=== PATIENT | female | born 1985 | race Caucasian/White ===

== ENCOUNTER 2020-08-12 15:11 | Emergency (ER) | payer BC ==
[2020-08-12] MEDS ORDERED: cefTRIAXone 1 GM Vial IM ONE (15:35)
[2020-08-12] MEDS ORDERED: Lidocaine 1% PF 2 ML SDV INJECT ONE (15:35)
--- NOTE | 2020-08-12 15:41 | EDM.PDOC ---
ED HPI GENERAL MEDICAL PROBLEM - General Chief Complaint: Skin Complaint Stated Complaint: POSSIBLE FROSTBITE Time Seen by Provider: 08/12/20 15:30 Source of Information: Reports: Patient History Limitations: Reports: No Limitations - History of Present Illness INITIAL COMMENTS - FREE TEXT/NARRATIVE: 35-year-old female presents to the ED with a painful left buttock. Patient has been giving herself injections alternating each buttock cheek for the last several months to maintain current which is estimated to be about 8 weeks along. She achieved this through into in vitro fertilization. She is currently giving herself progesterone injections into the buttock on a daily basis and is wearing an estradiol patch. So far no problems with the of occurred. She does not feel sick in terms of fever chills nausea vomiting. She appreciates area becoming much more painful since the injection was given into the buttock this morning. She thought perhaps that the progesterone which is kept in the fridge was too cold and that she had suffered frostbite. However this would be highly unlikely. Onset: Today, Sudden Onset Date: 08/12/20 Onset Time: 09:00 Duration: Hour(s):, Getting Worse Location: Reports: Other (Left buttock) Quality: Reports: Ache, Burning Severity: Mild Improves with: Reports: Rest Worsens with: Reports: Other Context: Reports: Trauma (For the last several weeks.). Denies: Activity, Exercise (Worse with touching the area.), Lifting, Sick Contact, Other Associated Symptoms: Reports: Malaise. 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 (see below) - Related Data Allergies Allergy/AdvReac Type Severity Reaction Status Date / Time No Known Allergies Allergy Verified 08/12/20 15:27 Home Meds: Home Meds Cefdinir [Omnicef] 300 mg PO BID #16 cap 08/12/20 [Rx] Estradiol [Sil] 2 patch TD Q48H 08/12/20 [History] estradioL [Estradiol] 2 mg PO BID 08/12/20 [History] proGESTerone [Progesterone In Oil] 1 injection IM DAILY 08/12/20 [History] Past Medical History 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 Denies: Fever, Chills, Malaise, Decreased Appetite (I did a ), Weight Loss HEENT: Reports: No Symptoms Respiratory: Reports: No Symptoms Cardiovascular: Reports: No Symptoms Endocrine: Reports: No Symptoms GI/Abdominal: Reports: No Symptoms : Reports: No Symptoms Musculoskeletal: Reports: No Symptoms Skin: Reports: Erythema (Erythematous and tenderness ) Neurological: Reports: No Symptoms Psychiatric: Reports: No Symptoms Hematologic/Lymphatic: Reports: No Symptoms Immunologic: Reports: No Symptoms ED EXAM, SKIN/RASH Exam: See Below Exam Limited By: No Limitations General Appearance: Alert, WD/WN, No Apparent Distress, Other (Temperature is 36.9. Heart rate is 71 and sinus respiratory to 16 BP 134/65 with O2 sats of 99% room air.) Eye Exam: Bilateral Eye: Normal Inspection, PERRL Skin: Other (Patient has an area of developing cellulitis left upper outer buttock measuring approximately 12 cm x 14 cm. It is well-defined erythematous borders and is warm to palpation combined with a developing cellulitis. It is mildly tender to touch.) Location, Skin: Other (Left upper outer buttock.) Course - Vital Signs Last Recorded V/S: Last Vital Signs Temp 36.9 C 08/12/20 15:25 Pulse 71 08/12/20 15:25 Resp 16 08/12/20 15:25 BP 134/65 08/12/20 15:25 Pulse Ox 99 08/12/20 15:25 - Orders/Labs/Meds Meds: Medications Discontinued Medications Generic Name Dose Route Start Last Admin Trade Name Freq PRN Reason Stop Dose Admin Ceftriaxone Sodium 1 gm 08/12/20 15:35 Rocephin IM 08/12/20 15:36 ONETIME ONE Lidocaine HCl 2 ml 08/12/20 15:35 Xylocaine-Mpf 1% INJECT 08/12/20 15:36 ONETIME ONE - Radiology Interpretation Free Text/Narrative:: 35-year-old female presents to the ED for evaluation of a painful erythematous area that is developed on left upper outer buttock she believes since this morning. Patient has achieved through in vitro fertilization and has been injecting each side of her buttock on an alternating daily basis with progesterone injections. She appreciated increased pain and inflammation in her left upper buttock where she gave her shot this morning. She reports that the progesterone was kept in the fridge and was quite cold when she injected and she had concerned that she may have precipitated frostbite. However on examination she is developing a cellulitis of the buttock to be due to staph aureus infection. Decision made to treat her with Rocephin 1 g intramuscularly with 2 mils of lidocaine 1%. She will then be placed on Omnicef 300 mg twice daily for the next 8 days to clear up infection. Only concern would be that she has an underlying MRSA infection which will worsen over time instead of improve over the next 48 hours. Bactrim is relatively contraindicated in early and doxycycline is totally contraindicated. Macrobid may be a suitable alternative although it is likely to precipitate further nausea and vomiting. Departure - Departure Time of Disposition: 16:20 Disposition: Home, Self-Care 01 Condition: Fair Clinical Impression: Cellulitis of buttock, left, First trimester - Discharge Information *PRESCRIPTION DRUG MONITORING PROGRAM REVIEWED*: Not Applicable *COPY OF PRESCRIPTION DRUG MONITORING REPORT IN PATIENT LYNDA: Not Applicable Prescriptions: Cefdinir [Omnicef] 300 mg PO BID #16 cap Instructions: Cellulitis, Adult Referrals: PCP,Not In Area [Primary Care Provider] - Forms: ED Department Discharge Additional Instructions: Evaluation in the emergency room today in regards to injection site swelling and redness left buttock. As you indicated you were alternating each buttock daily for progesterone injections and yearly first trimester after in vitro fertilization. On examination there is an area of redness and increased warmth of the left buttock indicating that you are developing a infection under the skin called cellulitis. You were treated with initial dose of antibiotic Rocephin 1 g intramuscularly. You will need to continue oral antibiotic Omnicef 300 mg twice daily for the next 8 days to clear this infection up completely. You should notice a marked improvement in the redness swelling and discomfort over the next 48 to 72 hours. You would have to return to the ED if you develop any fever chills or the area of redness is actually expanding in size after 48 hours of treatment. Sepsis Event Note (ED) - Evaluation Sepsis Screening Result: No Definite Risk - Focused Exam Vital Signs: Vital Signs Temp Pulse Resp BP Pulse Ox 08/12/20 15:25 36.9 C 71 16 134/65 99
== END 2020-08-12 16:15 | disposition home or self-care (01) ==
LOC: JD.ED 15:11
DX: O99.711 Diseases of the skin and subcutaneous tissue complicating pregnancy, first trimester (principal); L03.317 Cellulitis of buttock; Z3A.08 8 weeks gestation of pregnancy
CPT/HCPCS: 96372; 99283; J0696; J2001